=== PATIENT | male | born 2000 | race Caucasian/White ===

== ENCOUNTER 2019-03-25 00:45 | Emergency (ER) | payer OTHER ==
[~2019-03-25] VITALS: Ht 167.6 cm; Wt 49.9 kg
[2019-03-25 00:46] VITALS: BP 116/71
[2019-03-25 01:27] VITALS: BP 116/71
--- NOTE | 2019-03-25 01:27 | NUR ---
Patient discharged with v/s stable. Written and verbal after care instructions given and explained. Patient verbalized understanding. Police escorted in custody. All questions addressed prior to discharge. Advised to follow up with PMD.
== END 2019-03-25 01:27 ==
LOC: MED 00:45
DX: Z02.89 Encounter for other administrative examinations (principal); V49.49XA Driver injured in collision with other motor vehicles in traffic accident, initial encounter; Y93.89 Activity, other specified; Y92.488 Other paved roadways as the place of occurrence of the external cause; Y99.8 Other external cause status
CPT/HCPCS: 99283